=== PATIENT | male | born 1955 | race Caucasian/White ===

== ENCOUNTER 2021-04-01 13:04 | Emergency (ER) | payer OTHER ==
[~2021-04-01] VITALS: Ht 172.7 cm; Wt 77.1 kg
[2021-04-01 13:40] LABS: ABSOLUTE LYMPHOCYTES 0.7 thou/uL (0.8-5.3); ABSOLUTE MONOCYTES 0.5 thou/uL (0.0-1.2); ABSOLUTE NEUTROPHILS 3.5 thou/uL (1.6-8.1); BASOPHILS 0.5 %; EOSINOPHILS 0.7 %; HEMATOCRIT 48.3 % (42.0-52.0); LYMPHOCYTES 14.1 %; MCH 33.2 pg (26.0-34.0); MCHC 35.2 g/dL (28.0-37.0); MCV 94.4 fL (80.0-100.0); MONOCYTES 9.8 %; NUCLEATED RBCS 0 /100WBC; PLATELET COUNT* 153 thou/uL (150-400); POLYS 74.9 %; RBC 5.11 mil/uL (4.50-6.00); RDW-CV 13.3 % (10.5-14.5); WBC 4.6 thou/uL (4.0-11.0)
[2021-04-01 13:48] LABS: CALCIUM 8.8 mg/dL (8.5-10.1); POTASSIUM 4.2 mmol/L (3.5-5.1)
[2021-04-01 13:51] LABS: APTT 25.2 Seconds (25.0-31.3); INR 1.1; PROTIME 11.3 Seconds (9.20-11.50)
[2021-04-01 13:59] LABS: ALBUMIN 4.1 g/dL (3.4-5.0); MAGNESIUM 1.8 mg/dL (1.8-2.4); TOTAL BILIRUBIN 0.9 mg/dL (<0.1-1.0); TOTAL PROTEIN 7.8 g/dL (6.4-8.2)
--- NOTE | 2021-04-01 15:33 | EKG ---
[place] [address] ELECTROCARDIOGRAM REPORT Name: BRITNEY CERNA Room: [facility]#: [id number] Admission: 04/01/21 Attend Phys: Discharge: Date of : 57 Date of Service: 04/01/21 1351 Report #: [id number] THIS REPORT FOR: //name// [facility] ED Test Date: 2021-04-01 Test Time: 13:51:24 Pat Name: BRITNEY CERNA Department: Room: Gender: Habilitative Interventionist: AJIT : 1955 Requested By: Radhika Marcial Order Number: [id number] MD: Nikita Poe Measurements Intervals Bedias Rate: 82 P: -4 IN: 166 QRS: -32 QRSD: 89 T: 44 QT: 357 QTc: 417 Interpretive Statements Sinus rhythm Left axis deviation Consider RVH or posterior infarct No previous ECG available for comparison Electronically Signed On 04-01-2021 15:33:43 CDT by Nikita Poe [email or web address] <ELECTRONICALLY SIGNED> By: Nikita Poe MD, [facility] 04/01/21 1533 1351 1351 Nikita Poe MD, FACC /EPI
[2021-04-01] MEDS ORDERED: NORCO5 PO (16:24)
[2021-04-01] MEDS ORDERED: IBUPROFEN 800800 M1 PO (16:24)
[2021-04-01 16:46] VITALS: BP 176/113
== END 2021-04-01 16:47 | disposition home or self-care (01) ==
LOC: M.ERS 13:04
PROVIDERS: Nurse Practitioner Family
DX: S22.32XA Fracture of one rib, left side, initial encounter for closed fracture (principal); F17.210 Nicotine dependence, cigarettes, uncomplicated; X50.9XXA Other and unspecified overexertion or strenuous movements or postures, initial encounter; Y93.89 Activity, other specified; Y92.89 Other specified places as the place of occurrence of the external cause; Y99.0 Civilian activity done for income or pay